=== PATIENT | female | born 1970 | race Caucasian/White ===

== ENCOUNTER 2017-02-16 10:00 | Outpatient (CLI) | payer OTHER ==
[2015-07-28 07:34] VITALS: BMI 38.1
[~2017-02-16 10:00] MED LIST: DYAZIDE 37.5/251 CAP PO; SYNTHROID112 MCG PO; VITAMIN B-1000 MCG/M IM; VITAMIN D50000 UNIT PO; ZEBETA5 MG PO
== END 2017-02-16 23:59 | disposition home or self-care (01) ==
LOC: D.MAMMO 10:00
DX: Z12.31 Encounter for screening mammogram for malignant neoplasm of breast (principal)

== ENCOUNTER → 2018-10-02 07:47 | Outpatient (CLI) | payer OTHER ==
[2015-07-28 07:34] VITALS: BMI 38.1
[2018-10-02 10:13] LABS: BASOPHILS 0.4 % (0-2); EOSINOPHILS 2.3 % (0-7); HEMATOCRIT 34.5 % (36.0-48.0); HEMOGLOBIN 12.2 g/dL (12-16); IMMATURE GRANULOCYTES 0.4 % (0-5); LYMPHOCYTES 47.8 % (15-50); MCHC 35.4 g/dL (31.0-37.0); MCV 82.1 fL (80.0-100.0); MEAN PLATELET VOLUME 8.7 fL (7.4-10.4); MONOCYTES 5.9 % (2-11); NEUTROPHILS 43.2 % (40-80); PLATELET COUNT 162 10x3/uL (130-400); RDW 13.8 % (11.5-14.5); WBC 5.3 10x3/uL (4.8-10.8)
== END | disposition home or self-care (01) ==
LOC: D.RT 09-03 09:00 → D.LAB 09-03 10:00 → D.RT 09-03 10:00
PROVIDERS: ATTEND Internal Medicine Pulmonary Disease
DX: J45.991 Cough variant asthma (principal)